=== PATIENT | male | born 1985 | race Caucasian/White ===

== ENCOUNTER 2024-08-02 19:46 | Inpatient (IN) | payer SELFPAY ==
[2024-08-02 20:02] VITALS: BMI 31.4
[2024-08-02 21:38] LABS: HEMATOCRIT 48.6 % (35.4-49); HEMOGLOBIN 16.8 GM/dL (11.7-16.9); MCH 30.6 pg (25.7-33.7); MCHC 34.5 g/dl (32.0-35.9); MEAN CELL VOLUME 88.5 fl (80-96); MEAN PLT VOLUME 7.8 fl (7.5-11.1); PLATELET COUNT 253 10^3/uL (134-434); RDW 12.3 % (11.9-15.9); WHITE BLOOD COUNT 12.3 K/mm3 (4.0-10.0)
[2024-08-02] MEDS: SODIUM CHLORIDE 0.9% 1000 ML INFUS.BAG IV ONE (21:43)
[2024-08-02] MEDS: ACETAMINOPHEN 1000 MG/100 ML BAG IVPB ONE (21:43)
[2024-08-02 21:45] LABS: INR 1.21 (0.83-1.09); PROTHROMBIN TIME (PATIENT) 13.6 SEC (9.7-13.0)
[2024-08-02 21:48] LABS: ACTIVATED PTT 37.8 SECONDS (25.2-36.5)
[2024-08-02 22:01] LABS: POTASSIUM 4.1 mmol/L (3.5-5.1)
[2024-08-02 22:03] LABS: CALCIUM 9.5 mg/dL (8.5-10.1)
[2024-08-02 22:04] LABS: ALBUMIN 3.6 g/dl (3.4-5.0); BLOOD UREA NITROGEN 17.4 mg/dL (7-18)
[2024-08-02 22:07] LABS: CREATININE 1.3 mg/dL (0.55-1.3)
[2024-08-02 22:08] LABS: BILIRUBIN,TOTAL 1.1 mg/dL (0.2-1); TOT PROT 7.4 g/dl (6.4-8.2)
[2024-08-03] MEDS ORDERED: PIPERACILLIN/TAZOB 4.5 GM 4.5 GM/100 ML BAG IVPB ONE (00:58)
[2024-08-03] MEDS: PIPERACILLIN/TAZOB 4.5 GM 4.5 GM in DEXTROSE 5%-WATER 100 ML IVPB ONE (01:03)
[2024-08-03] MEDS ORDERED: ACETAMINOPHEN 325 MG TABLET (FP) PO PRN (01:19)
[2024-08-03] MEDS: VANCOMYCIN/WATER 1250 MG 1,250 MG/250 ML BAG IVPB ONE (01:51)
[2024-08-03] MEDS: SODIUM CHLORIDE 1,000 ML IV SCH (01:52)
[2024-08-03] MEDS: PIPERACILLIN/TAZOB 3.375 GM 50 ML IVPB SCH ×2 (05:08→21:46)
[2024-08-03 09:23] LABS: POTASSIUM 4.2 mmol/L (3.5-5.1)
[2024-08-03 09:26] LABS: ALBUMIN 3.4 g/dl (3.4-5.0); BLOOD UREA NITROGEN 12.7 mg/dL (7-18); CALCIUM 9.2 mg/dL (8.5-10.1); MAGNESIUM 2.1 mg/dL (1.8-2.4)
[2024-08-03 09:29] LABS: CREATININE 1.3 mg/dL (0.55-1.3); PHOSPHOROUS 3.8 mg/dL (2.5-4.9)
[2024-08-03 09:30] LABS: BILIRUBIN,TOTAL 1.9 mg/dL (0.2-1)
[2024-08-03] MEDS ORDERED: ONDANSETRON 4 MG/2 ML VIAL IVPUSH PRN ×2 (13:38→15:53)
[2024-08-03] MEDS ORDERED: PROPOFOL 20 ML ONE ×2 (13:50→14:15)
[2024-08-03] MEDS ORDERED: MIDAZOLAM HCL 2 MG/2 ML SINGLE DOSE VIAL ONE (13:50)
[2024-08-03] MEDS: PIPERACILLIN/TAZOBACTAM 3.375 GM VIAL IVPB ONE (14:20)
[2024-08-03] MEDS ORDERED: ONDANSETRON 4 MG/2 ML VIAL ONE (14:22)
[2024-08-03] MEDS ORDERED: DEXAMETHASONE SOD PHOSPHATE 4 MG/1 ML VIAL ONE (14:22)
[2024-08-03] MEDS ORDERED: PIPERACILLIN/TAZOBACTAM 3.375 GM VIAL IVPB ONE (14:23)
[2024-08-03] MEDS ORDERED: KETOROLAC TROMETHAMINE 30 MG/1 ML VIAL ONE (14:35)
[2024-08-03] MEDS ORDERED: ACETAMINOPHEN INJECTION 100 ML ONE (14:40)
[2024-08-03 15:57] LABS: HIV INTERPRETATION NEGATIVE (NEGATIVE)
[2024-08-03] MEDS: LACTATED RINGERS SOLUTION 1,000 ML IV SCH ×2 (16:56→16:57)
[2024-08-03] MEDS: PIPERACILLIN/TAZOB 3.375 GM 3.375 GM in DEXTROSE 5%-WATER - 50 ML IVPB SCH (16:56)
[2024-08-03] MEDS ORDERED: PIPERACILLIN/TAZOB 3.375 GM 3.375 GM in DEXTROSE 5%-WATER - 50 ML IVPB SCH (21:00)
[2024-08-04 07:55] LABS: HEMATOCRIT 46.8 % (35.4-49); LYMPH % 6.5 % (8-40); MCH 30.5 pg (25.7-33.7); MCHC 34.2 g/dl (32.0-35.9); MEAN CELL VOLUME 89.2 fl (80-96); MEAN PLT VOLUME 8.3 fl (7.5-11.1); MONO % 6.8 % (3.8-10.2); NEUT % 86.7 % (42.8-82.8); PLATELET COUNT 282 10^3/uL (134-434); RBC 5.25 M/mm3 (4.00-5.60); RDW 12.1 % (11.9-15.9); WHITE BLOOD COUNT 13.7 K/mm3 (4.0-10.0)
[2024-08-04 08:32] LABS: POTASSIUM 4.5 mmol/L (3.5-5.1)
[2024-08-04 08:38] LABS: BLOOD UREA NITROGEN 21.5 mg/dL (7-18)
[2024-08-04 08:39] LABS: ALBUMIN 3.1 g/dl (3.4-5.0); MAGNESIUM 2.2 mg/dL (1.8-2.4)
[2024-08-04 08:40] LABS: CREATININE 1.3 mg/dL (0.55-1.3)
[2024-08-04 08:42] LABS: BILIRUBIN,TOTAL 1.1 mg/dL (0.2-1); TOT PROT 6.9 g/dl (6.4-8.2)
[2024-08-04] MEDS: PIPERACILLIN/TAZOB 3.375 GM 50 ML IVPB SCH (09:31)
[2024-08-04] MEDS: ACETAMINOPHEN 325 MG TABLET (FP) PO PRN (16:39)
[2024-08-05 08:07] LABS: POTASSIUM 3.9 mmol/L (3.5-5.1)
[2024-08-05 08:09] LABS: ALBUMIN 2.9 g/dl (3.4-5.0); CALCIUM 8.8 mg/dL (8.5-10.1)
[2024-08-05 08:10] LABS: BLOOD UREA NITROGEN 15.4 mg/dL (7-18)
[2024-08-05 08:13] LABS: CREATININE 1.2 mg/dL (0.55-1.3)
[2024-08-05 08:14] LABS: BILIRUBIN,TOTAL 0.8 mg/dL (0.2-1); TOT PROT 6.1 g/dl (6.4-8.2)
[2024-08-05 08:15] LABS: BASO % 0.2 % (0-2.0); EOS % 1.6 % (0-4.5); HEMATOCRIT 43.8 % (35.4-49); HEMOGLOBIN 15.3 GM/dL (11.7-16.9); LYMPH % 21.8 % (8-40); MCH 30.9 pg (25.7-33.7); MEAN CELL VOLUME 88.3 fl (80-96); MONO % 10.7 % (3.8-10.2); NEUT % 65.7 % (42.8-82.8); PLATELET COUNT 253 10^3/uL (134-434); RBC 4.97 M/mm3 (4.00-5.60); WHITE BLOOD COUNT 8.2 K/mm3 (4.0-10.0)
[2024-08-05] MEDS ORDERED: PIPERACILLIN/TAZOB 3.375 GM 50 ML IVPB SCH ×2 (10:00→18:00)
[2024-08-05] MEDS: metroNIDAZOLE 250 MG TABLET PO SCH (13:53)
[2024-08-05 14:19] VITALS: BP 113/76; PULSE 82; RESP 18; TEMP 98.6
== END 2024-08-05 16:50 | disposition home or self-care (01) | DRG 223 ==
LOC: JER 19:46 → JERBED 08-03 00:51 → J7W 08-03 02:17
PROVIDERS: ADMIT Internal Medicine; ATTEND Internal Medicine
PROC: 0D9P0ZZ Drainage of Rectum, Open Approach (ICD-10-PCS; principal; 2024-08-03 14:00)
DX: K61.1 Rectal abscess (principal); E80.6 Other disorders of bilirubin metabolism; L03.317 Cellulitis of buttock; B96.29 Other Escherichia coli [E. coli] as the cause of diseases classified elsewhere
CPT/HCPCS: 36415; 74177-TC; 80053; 82248; 83735; 84100; 85025; 85027; 85610; 85651; 85730; 86140; 86850; 86900; 86901; 87070; 87076; 87081; 87186; 87205; 87389; 94760; 99285-25; J0131; Q9967